=== PATIENT | male | born 1960 | race Caucasian/White ===

== ENCOUNTER → 2017-02-13 | Outpatient (CLI) | payer OTHER ==
[~2017-02-13] MED LIST: ALL180
[2017-02-13 15:05] LABS: ALT/SGPT 33 U/L (12-78); BLOOD UREA NITROGEN 13 mg/dl (7-18); BUN/CREATININE RATIO 11.2 (10-20); CALCIUM 8.6 mg/dl (8.5-10.1); CARBON DIOXIDE 29 mmol/L (21-32); CHLORIDE 105 mmol/L (98-107); CHOLESTEROL 141 mg/dl (0-200); GLUCOSE 98 mg/dl (70-99); SODIUM 141 mmol/L (136-145); TRIGLYCERIDES 238 mg/dl (0-150); VERY LOW DENSITY LIPOPROT CALC 48 mg/dl
[2017-02-13 15:12] LABS: ALB/GLOB RATIO 1.1 (0.9-2); ALKALINE PHOSPHATASE 117 U/L (45-117); AST/SGOT 20 U/L (15-37); CHOLESTEROL/HDL RATIO 3.8; HDL CHOLESTEROL 37 mg/dl; LDL CHOLESTEROL CALCULATED 56 mg/dl
== END | disposition home or self-care (01) ==
LOC: C.LABBC 11:23
PROVIDERS: ATTEND Family Medicine
DX: E78.5 Hyperlipidemia, unspecified (principal)

== ENCOUNTER → 2017-06-13 | Outpatient (CLI) | payer OTHER ==
--- NOTE | 2017-06-13 08:25 | DIAGNOSTIC IMAGING REPORT ---
TESTICULAR ULTRASOUND HISTORY: Epididymal cyst. COMPARISON: None. FINDINGS: Right testis: 4.2 x 2.2 x 2.7 cm. There are no intratesticular masses. Normal color flow. No hydrocele. A few small cysts within the head of the epididymis with the largest measuring 5 mm. Mild thickening and slight increased color flow within the tail of the right epididymis. Left testis: 4.2 x 2.8 x 2.1 cm. There are no intratesticular masses. Normal color flow. Small left hydrocele. The epididymis is unremarkable. IMPRESSION: 1. A few small cysts within the head of the right epididymis with the largest measuring 5 mm. 2. No intratesticular masses. 3. Mild thickening and slight increased color flow within the tail the right epididymis. A mild epididymitis is not excluded. Electronically signed by: Andrés Parsons M.D. 06/13/2017 8:24 AM Dictated Date/Time: 06/13/2017 8:20 AM
== END | disposition home or self-care (01) ==
LOC: C.ULTRBC 07:35
PROVIDERS: ATTEND Internal Medicine
DX: N50.3 Cyst of epididymis (principal)